=== PATIENT | male | born 1985 | race Caucasian/White ===

== ENCOUNTER 2018-07-07 23:04 | Emergency (ER) | payer SELFPAY ==
[~2018-07-07] VITALS: Ht 175.3 cm; Wt 92.1 kg
--- NOTE | 2018-07-07 23:40 | NUR ---
ED Nurse Note: pt walked in c/o chest pain x 1 hr, sternal area denies radiation, pt reports it feels like pressure feeling, pt states he did drugs, cocaine and other drugs 4 days ago, current everyday smoker. pt AA&ox4, gcs=15, skin warm and dry, resp even and unlabored on RA, -n/v/d, ambulates w/ steady gait, will cont monitor. vss.
[2018-07-07 23:44] VITALS: BP 127/101
[2018-07-07 23:50] LABS: BASOPHILS % (AUTO) 0.7 % (0.0-2.0); EOSINOPHILS % (AUTO) 1.8 % (0.0-3.0); HEMATOCRIT 41.3 % (42.0-52.0); LYMPHOCYTES % (AUTO) 38.7 % (20.0-45.0); MEAN CORPUSCULAR VOLUME 84 FL (80-99); MONOCYTES % (AUTO) 9.3 % (1.0-10.0); NEUTROPHILS % (AUTO) 49.5 % (45.0-75.0); PLATELET COUNT 236 K/UL (150-450); RED CELL DISTRIBUTION WIDTH 12.8 % (11.6-14.8); WHITE BLOOD COUNT 10.3 K/UL (4.8-10.8)
[2018-07-08 00:19] LABS: ALANINE AMINOTRANSFERASE 19 U/L (12-78); ALBUMIN 3.4 G/DL (3.4-5.0); ALBUMIN/GLOBULIN RATIO 0.9 (1.0-2.7); ALKALINE PHOSPHATASE 84 U/L (46-116); ANION GAP 6 mmol/L (5-15); ASPARTATE AMINO TRANSFERASE 9 U/L (15-37); BILIRUBIN,TOTAL 0.2 MG/DL (0.2-1.0); CALCIUM 9.2 MG/DL (8.5-10.1); CARBON DIOXIDE 33 MMOL/L (21-32); CHLORIDE 104 MMOL/L (98-107); CKMB 1.1 NG/ML (0.0-3.6); CREATINE KINASE 135 U/L (26-308); CREATININE 1.3 MG/DL (0.55-1.30); POTASSIUM 3.9 MMOL/L (3.5-5.1); SODIUM 143 MMOL/L (136-145)
[2018-07-08 00:42] LABS: BLOOD UREA NITROGEN 11 mg/dL (7-18)
--- NOTE | 2018-07-08 00:57 | NUR ---
ED Nurse Note: pt cleared to be d/c per ERMD, pt discharge and aftercare instruction provided w/ clinic referral, pt advised to follow up with pcp/clinic or return to ed if sx worsen or new sx develop, pt iv d/c and ID band removed, pt vss, ambulatory w/steady gait, left w/ all belongings, verbalized understanding and agrees with plan.
[2018-07-08 00:58] VITALS: BP 126/76
--- NOTE | 2018-07-08 01:00 | Diagnostic Imaging Report ---
EXAM: XR Chest, 1 View CLINICAL HISTORY: CP TECHNIQUE: Frontal view of the chest. COMPARISON: No relevant prior studies available. FINDINGS: Lungs: Unremarkable. No consolidation. Pleural space: Unremarkable. No pneumothorax. Heart: Unremarkable. No cardiomegaly. Mediastinum: Unremarkable. Bones/joints: Unremarkable. IMPRESSION: No radiographic evidence of acute cardiopulmonary disease.
--- NOTE | 2018-07-08 02:35 | Emergency Room Report ---
History of Present Illness General Chief Complaint: Chest Pain Source: Patient Present Illness HPI 32-year-old male presents ED for evaluation. Complaining of chest pain; states his heart is racing. Started one hour ago. Midsternal, dull, 10 out of 10, nonradiating. Denies shortness of breath. Denies history of hypertension. Admits to drug use 4 days ago. States he is currently in a rehabilitation facility. States he's been using fentanyl and cocaine and opiates. No other aggravating relieving factors. Denies any other associated symptoms Allergies: Coded Allergies: No Known Allergies (Unverified , 07/07/18) Patient History Past Surgical History: other - gastric bypass Pertinent Family History: none Social History: Reports: drug use; Denies: smoking, alcohol use Reviewed Nursing Documentation: PMH: Agreed; PSxH: Agreed Nursing Documentation-PMH Hx Gastrointestinal Problems: Yes - Gastric bypass sugery Review of Systems All Other Systems: negative except mentioned in HPI Physical Exam Vital Signs Date Time Temp Pulse Resp B/P (MAP) Pulse Ox O2 Delivery O2 Flow Rate FiO2 07/07/18 23:09 98.4 75 20 130/81 96 Room Air Sp02 EP Interpretation: reviewed, normal General Appearance: no apparent distress, alert, GCS 15, non-toxic Head: normocephalic, atraumatic Eyes: bilateral eye normal inspection, bilateral eye PERRL ENT: hearing grossly normal, normal pharynx, no angioedema, normal voice Neck: full range of motion, supple/symm/no masses Respiratory: chest non-tender, lungs clear, normal breath sounds, speaking full sentences Cardiovascular #1: regular rate, rhythm, no edema Cardiovascular #2: 2+ carotid (R), 2+ carotid (L), 2+ radial (R), 2+ radial (L) , 2+ dorsalis pedis (R), 2+ dorsalis pedis (L) Gastrointestinal: normal bowel sounds, non tender, soft, non-distended, no guarding, no rebound Rectal: deferred Genitourinary: normal inspection, no CVA tenderness Musculoskeletal: back normal, gait/station normal, normal range of motion, non- tender Neurologic: alert, oriented x3, responsive, motor strength/tone normal, sensory intact, speech normal Psychiatric: judgement/insight normal, memory normal, mood/affect normal, no suicidal/homicidal ideation Reflexes: 3+ bicep (R), 3+ bicep (L), 3+ tricep (R), 3+ tricep (L), 3+ knee (R) , 3+ knee (L) Skin: normal color, no rash, warm/dry, well hydrated Lymphatic: no adenopathy Medical Decision Making Diagnostic Impression: Primary Impression: Chest pain Qualified Codes: R07.9 - Chest pain, unspecified Additional Impression: Substance abuse ER Course Hospital Course 32-year-old M presents ED complaining of chest pain. h/o substance abuse Differential diagnoses include: Rib fracture, AZ/unstable angina, contusion, muscle strain Clinical course Patient placed on stretcher. After initial history and physical I ordered labs , EKG, chest x-ray. labs reviewed- all electrolytes normal, troponins negative, no leukocytosis, hemoglobin/hematocrit stable, UTox + BZs EKG - NSR, no acute ischemic changes interpreted by me Chest x-ray-no cardiomegaly, no rib fracture, no pneumothorax, no acute process Discussed findings with patient. Chest pain resolved during ED course. Patient has no cardiac risk factors. There is a history of substance abuse but tox screen negative for cocaine. Possibly anxiety. Patient can be safely discharged to home. We'll provide outpatient referrals I. I feel this is a highly complex case requiring extensive working including EKG/Rhythm strip, Xray/CT/US, Blood/urine lab work, repeat exams while in ED, and administration of strong opiates/narcotics for pain control, admission to hospital or close patient follow up. Diagnosis - chest pain, substance abuse Stable and discharged to home. Instructed to followup with PMD. Return to ED if symptoms recur or worsen Labs Test 07/07/18 23:30 White Blood Count 10.3 K/UL (4.8-10.8) Red Blood Count 4.90 M/UL (4.70-6.10) Hemoglobin 14.0 G/DL (14.2-18.0) Hematocrit 41.3 % (42.0-52.0) Mean Corpuscular Volume 84 FL (80-99) Mean Corpuscular Hemoglobin 28.5 PG (27.0-31.0) Mean Corpuscular Hemoglobin Concent 33.8 G/DL (32.0-36.0) Red Cell Distribution Width 12.8 % (11.6-14.8) Platelet Count 236 K/UL (150-450) Mean Platelet Volume 6.1 FL (6.5-10.1) Neutrophils (%) (Auto) 49.5 % (45.0-75.0) Lymphocytes (%) (Auto) 38.7 % (20.0-45.0) Monocytes (%) (Auto) 9.3 % (1.0-10.0) Eosinophils (%) (Auto) 1.8 % (0.0-3.0) Basophils (%) (Auto) 0.7 % (0.0-2.0) Sodium Level 143 MMOL/L (136-145) Potassium Level 3.9 MMOL/L (3.5-5.1) Chloride Level 104 MMOL/L (98-107) Carbon Dioxide Level 33 MMOL/L (21-32) Anion Gap 6 mmol/L (5-15) Blood Urea Nitrogen 11 mg/dL (7-18) Creatinine 1.3 MG/DL (0.55-1.30) Estimat Glomerular Filtration Rate > 60 mL/min (>60) Glucose Level 98 MG/DL (74-106) Calcium Level 9.2 MG/DL (8.5-10.1) Total Bilirubin 0.2 MG/DL (0.2-1.0) Aspartate Amino Transf (AST/SGOT) 9 U/L (15-37) Alanine Aminotransferase (ALT/SGPT) 19 U/L (12-78) Alkaline Phosphatase 84 U/L (46-116) Total Creatine Kinase 135 U/L (26-308) Creatine Kinase MB 1.1 NG/ML (0.0-3.6) Creatine Kinase MB Relative Index 0.8 Troponin I 0.002 ng/mL (0.000-0.056) Pro-B-Type Natriuretic Peptide 12 pg/mL (0-125) Total Protein 7.4 G/DL (6.4-8.2) Albumin 3.4 G/DL (3.4-5.0) Globulin 4.0 g/dL Albumin/Globulin Ratio 0.9 (1.0-2.7) Urine Opiates Screen Negative (NEGATIVE) Urine Barbiturates Screen Negative (NEGATIVE) Phencyclidine (PCP) Screen Negative (NEGATIVE) Urine Amphetamines Screen Negative (NEGATIVE) Urine Benzodiazepines Screen Positive (NEGATIVE) Urine Cocaine Screen Negative (NEGATIVE) Urine Marijuana (THC) Screen Negative (NEGATIVE) EKG Diagnostic Results Rate: normal Rhythm: NSR ST Segments: no acute changes ASA given to the pt in ED: No Rhythm Strip Diag. Results EP Interpretation: yes Rhythm: NSR, no PVC's, no ectopy Chest X-Ray Diagnostic Results Chest X-Ray Diagnostic Results : Chest X-Ray Ordered: Yes # of Views/Limited/Complete: 1 View Indication: Chest Pain EP Interpretation: Yes Interpretation: no consolidation, no effusion, no pneumothorax, no acute cardiopulmonary disease Impression: No acute disease Electronically Signed by: Electronically signed by Tigre Swann MD Last Vital Signs Date Time Temp Pulse Resp B/P (MAP) Pulse Ox O2 Delivery O2 Flow Rate FiO2 07/08/18 00:58 98.2 74 18 126/76 100 Room Air Status: improved Disposition: HOME, SELF-CARE Condition: Stable Referrals: [facility] Patient Instructions: Nonspecific Chest Pain, Substance Abuse Testing Tigre Swann MD Jul 08, 2018 02:35
--- NOTE | 2018-07-10 18:26 | Cardiology Report ---
APPROVED REPORT EKG Measurement Heart [id number] Normal sinus rhythm Normal ECG
== END 2018-07-08 00:59 | disposition home or self-care (01) ==
LOC: EMR 23:39
DX: R07.9 Chest pain, unspecified (principal); F19.10 Other psychoactive substance abuse, uncomplicated; Z98.84 Bariatric surgery status
CPT/HCPCS: 36415; 71045; 80053; 80307; 82550; 82553; 83880; 84484; 85025; 93005; 96360; 99284

== ENCOUNTER 2018-07-26 12:33 | Emergency (ER) | payer SELFPAY ==
[~2018-07-26] VITALS: Ht 175.3 cm; Wt 81.6 kg
[2018-07-26] MEDS ORDERED: Mylanta II UD 30ml ORAL ONE (13:15)
[2018-07-26] MEDS ORDERED: Lidocaine 2% Visc 15ml soln ORAL ONE (13:15)
--- NOTE | 2018-07-26 13:51 | Emergency Room Report ---
History of Present Illness General Chief Complaint: Vomiting Source: Patient Present Illness HPI 32-year-old male presents to the emergency department complaining of intermittent episodes of vomiting with 3/10 in severity burning epigastric pain as well as cough that he states is worse at nighttime. Patient reports that he has a history of gastric sleeve surgery which was performed 4 years ago. Patient reports that he has been noticing increase in acid reflux. Patient states that he is currently in a rehabilitation facility after which he detox from multiple street drugs he states that he is requiring to medications for his symptoms. Patient denies all symptoms at this time he denies fevers, chills , constipation or diarrhea. Patient denies recent travel or ill contacts. Patient states that he was not detoxing from opiates. Patient states that when he eats steak or chicken aggravates his symptoms no relieving factors at this time. Allergies: Coded Allergies: No Known Allergies (Unverified , 07/07/18) Patient History Past Medical History: see triage record, GERD Past Surgical History: none Immunizations: UTD Reviewed Nursing Documentation: PMH: Agreed Nursing Documentation-PMH Past Medical History: No Stated History Hx Gastrointestinal Problems: Yes - Gastric bypass sugery Review of Systems All Other Systems: negative except mentioned in HPI Physical Exam Vital Signs Date Time Temp Pulse Resp B/P (MAP) Pulse Ox O2 Delivery O2 Flow Rate FiO2 07/26/18 12:47 98.4 84 16 99 Room Air Sp02 EP Interpretation: reviewed, normal General Appearance: no apparent distress, alert, GCS 15, non-toxic Head: normocephalic, atraumatic Eyes: bilateral eye normal inspection, bilateral eye PERRL ENT: hearing grossly normal, normal voice Neck: full range of motion Respiratory: lungs clear, normal breath sounds, no accessory muscle use, no wheezing, speaking full sentences Cardiovascular #1: regular rate, rhythm Gastrointestinal: normal bowel sounds, non tender, soft, non-distended, no guarding Musculoskeletal: back normal, gait/station normal, normal range of motion, non- tender Neurologic: alert, oriented x3, responsive, motor strength/tone normal, sensory intact, speech normal, grossly normal Psychiatric: judgement/insight normal Skin: normal color, no rash, warm/dry, well hydrated Medical Decision Making PA Attestation Dr. Pierre is my supervising Physician whom patient management has been discussed with. Diagnostic Impression: Primary Impression: Acid reflux Qualified Codes: K21.9 - Gastro-esophageal reflux disease without esophagitis Additional Impression: Cough ER Course 32-year-old male presents to the emergency department complaining of intermittent episodes of vomiting with 3/10 in severity burning epigastric pain as well as cough that he states is worse at nighttime. Patient reports that he has a history of gastric sleeve surgery which was performed 4 years ago. Patient reports that he has been noticing increase in acid reflux. Patient states that he is currently in a rehabilitation facility after which he detox from multiple street drugs he states that he is requiring to medications for his symptoms. Patient denies all symptoms at this time he denies fevers, chills , constipation or diarrhea. Patient denies recent travel or ill contacts. Patient states that he was not detoxing from opiates. Patient states that when he eats steak or chicken aggravates his symptoms no relieving factors at this time.. Ddx considered but are not limited to GE, colitis, acute appy, SBO, Cyclical Vomiting secondary to THC, opiate w/d, GERD, PNA just to name a few. Vital signs: pt. is afebrile, H&PE are most consistent with GERD secondary to gastric sleeve and pt. states he sleeps without a pillow, no evidence to suggest acute abdomen on physical exam. Lung exam is WNL ORDERS: -None required at this time, the dx is clinical. ED INTERVENTIONS: -Zofran, GI cocktail, Patient tolerated oral fluid challenge without complications. I discussed with this patient that he needs to stop eating proximally 2-3 hours prior to bedtime, elevate the head of the bed between 20-30 and start using pillows. -I do not identify an emergent condition at this time. With current presentation , pt. is stable for close outpatient follow up and conservative treatment. D/ w pt. to return promptly to ED with worsening or new symptoms.- Pt. verbalizes' understanding and agreement with proposed treatment plan.proposed treatment plan. DISCHARGE: At this time pt. is stable for d/c to home. Will provide printed patient care instructions, and any necessary prescriptions. Care plan and follow up instructions have been discussed with the patient prior to discharge. Last Vital Signs Date Time Temp Pulse Resp B/P (MAP) Pulse Ox O2 Delivery O2 Flow Rate FiO2 07/26/18 12:57 84 16 Room Air 07/26/18 12:47 98.4 99 Status: improved Disposition: HOME, SELF-CARE Condition: Stable Scripts B Complex With Vitamin C (B-COMPLEX WITH VITAMIN C) 1 Each Tablet 1 TAB ORAL DAILY, #30 TAB 0 Refills Prov: Lien Navarrete 07/26/18 Ranitidine Hcl* (ZANTAC*) 150 Mg Tablet 150 MG ORAL TWICE A DAY, #20 TAB Prov: Lien Navarrete 07/26/18 Famotidine/Ca Carb/Mag Hydrox (PEPCID COMPLETE TABLET CHEW) 1 Each Tab.chew 1 EACH PO BID, #20 TAB Prov: Lien Navarrete 07/26/18 Referrals: NOT CHOSEN IPA/MD,REFERRING (PCP) Patient Instructions: Food Choices for Gastroesophageal Reflux Disease, Adult, [id number] Additional Instructions: Take medications as directed. Follow up with a Primary Care Provider in 3-5 days, even if your symptoms have resolved. -- GI SPECIALIST FOR GASTRIC SLEEVE EVAL. Return sooner to ED if new symptoms occur, or current symptoms become worse. - Please note that this Emergency Department Report was dictated using [employer] supervisor technology software, occasionally this can lead to erroneous entry secondary to interpretation by the dictation equipment. Lien Navarrete July 26, 2018 13:51
[2018-07-26] MEDS ORDERED: PEPCID COMPLET1 EACH PO (13:54)
[2018-07-26] MEDS ORDERED: ZANTAC150 MG ORAL (13:54)
[2018-07-26] MEDS ORDERED: B-COMPLEX WITH1 EACH ORAL (13:55)
--- NOTE | 2018-07-26 14:00 | NUR ---
ER DISCHARGE NOTE: Patient is cleared to be discharged per ERMD, pt is aox4, on room air, with stable vital signs. pt was given dc and prescription instructions, pt was able to verbalize understanding, pt is able to ambulate with steady gait. pt took all belongings.
[2018-07-26 14:52] VITALS: BP 112/62
[2018-07-26 14:54] VITALS: BP 112/62
== END 2018-07-26 14:10 | disposition home or self-care (01) ==
LOC: EMR 13:35
DX: K21.9 Gastro-esophageal reflux disease without esophagitis (principal); R05 Cough; Z98.84 Bariatric surgery status
CPT/HCPCS: 99282

== ENCOUNTER 2018-11-06 11:33 | Emergency (ER) | payer SELFPAY ==
[~2018-11-06] VITALS: Ht 175.3 cm; Wt 90.7 kg
[~2018-11-06 11:33] MED LIST: B-COMPLEX WITH1 EACH ORAL; PEPCID COMPLET1 EACH PO; ZANTAC150 MG ORAL
[2018-11-06 11:50] VITALS: BP 131/77
--- NOTE | 2018-11-06 11:51 | NUR ---
ED Nurse Note: pt walked in to ED from rehab due to headache for 2 days. no recent injury. AAO x4. respirations even and non-labored noted. will wait for the further order.
[2018-11-06] MEDS ORDERED: Ketorolac 30mg Inj IV ONE (12:00)
--- NOTE | 2018-11-06 12:02 | Emergency Room Report ---
History of Present Illness General Chief Complaint: Headache Source: Patient Present Illness HPI Patient presents with 3 days of headache. He rates it 9/10 at this time and pounding. Is worse when he stands up. Patient was working out when this started. He was spending an hour on the treadmill and lifting weights. Today the headache was worse and associated with diarrhea liquid stool. He denies any blood in his stool. He feels heartburn at this time. He ate a full breakfast this morning. He is taking Pepcid. No weakness, tingling, numbness, visual changes, family history of aneurysms, documented fever, blood thinners, IV drug use or oncologic problems. According to the physician who is in rehab with the patient he has had 2 syncopal episodes. In addition the physician informs me that the patient had a cardiac event several years ago related to alcohol withdrawal. They had to shock his heart apparently. Patient denies headaches like this before. He states it was not sudden onset. He denies aura or visual changes. No nausea or vomiting. No sore throat, chest pain, palpitations, dysuria, abdominal pain, shortness of breath, joint pain, rashes, depression, anxiety. Status post liposuction Allergies: Coded Allergies: No Known Allergies (Unverified , 07/07/18) Patient History Past Medical History: see triage record Past Surgical History: other - Liposuction Social History: Reports: smoking; Denies: alcohol use - In rehab, prior use, drug use - In rehab prior use Social History Narrative In rehab program Reviewed Nursing Documentation: PMH: Agreed; PSxH: Agreed Nursing Documentation-PMH Past Medical History: No History, Except For Hx Gastrointestinal Problems: Yes - Gastric bypass sugery History Of Psychiatric Problem: Yes - Depression Review of Systems All Other Systems: negative except mentioned in HPI Physical Exam Vital Signs Date Time Temp Pulse Resp B/P (MAP) Pulse Ox O2 Delivery O2 Flow Rate FiO2 11/06/18 11:39 97.5 68 16 131/77 (95) 97 Room Air Sp02 EP Interpretation: reviewed, normal General Appearance: well appearing, no apparent distress, GCS 15 Head: normocephalic Eyes: bilateral eye normal inspection, bilateral eye PERRL, bilateral eye EOMI ENT: moist mucus membranes Neck: full range of motion, supple Respiratory: lungs clear, normal breath sounds Cardiovascular #1: regular rate, rhythm Cardiovascular #2: 2+ radial (L) Gastrointestinal: normal inspection, normal bowel sounds, non tender - Reported heartburn, no mass, non-distended Genitourinary: no CVA tenderness Musculoskeletal: back normal, gait/station normal, normal range of motion Neurologic: alert, oriented x3, mergers and acquisitions associate III-XII nml as tested, motor strength/tone normal, DTRs symmetric, sensory intact, cerebellar normal, normal gait, speech normal Psychiatric: mood/affect normal Skin: no rash Medical Decision Making Diagnostic Impression: Primary Impression: Headache Qualified Codes: G44.89 - Other headache syndrome Additional Impressions: Diarrhea Qualified Codes: R19.7 - Diarrhea, unspecified Dehydration ER Course Patient presents with 3 days of headache and now diarrhea. Differential includes migraine, viral syndrome, dehydration, electrolyte imbalance amongst others. The patient will be evaluated with labs. CT of the head is not indicated based on the neurologic exam and lack of red flag symptoms. Patient will receive IV hydration and also dose of Toradol and Pepcid. EKG sinus rhythm nonspecific ST-T wave changes. Labs significant for mild leukocytosis. Not orthostatic after IV. FRANCISCO and sy improved. Discussed outpatient follow-up. Advised to return if not improved. Also advised to decrease the intensity of the workout temporarily. Patient stable for outpatient observation and treatment. Laboratory Tests Test 11/06/18 11:55 11/06/18 12:15 Urine Color Pale yellow Urine Appearance Clear Urine pH 5 (4.5-8.0) Urine Specific [place] 1.020 (1.005-1.035) Urine Protein Negative (NEGATIVE) Urine Glucose (UA) Negative (NEGATIVE) Urine Ketones Negative (NEGATIVE) Urine Blood Negative (NEGATIVE) Urine Nitrite Negative (NEGATIVE) Urine Bilirubin Negative (NEGATIVE) Urine Urobilinogen Normal MG/DL (0.0-1.0) Urine Leukocyte Esterase Negative (NEGATIVE) Urine Opiates Screen Negative (NEGATIVE) Urine Barbiturates Screen Negative (NEGATIVE) Phencyclidine (PCP) Screen Negative (NEGATIVE) Urine Amphetamines Screen Negative (NEGATIVE) Urine Benzodiazepines Screen Negative (NEGATIVE) Urine Cocaine Screen Negative (NEGATIVE) Urine Marijuana (THC) Screen Negative (NEGATIVE) White Blood Count 12.3 K/UL (4.8-10.8) H Red Blood Count 4.85 M/UL (4.70-6.10) Hemoglobin 13.5 G/DL (14.2-18.0) L Hematocrit 41.7 % (42.0-52.0) L Mean Corpuscular Volume 86 FL (80-99) Mean Corpuscular Hemoglobin 27.9 PG (27.0-31.0) Mean Corpuscular Hemoglobin Concent 32.4 G/DL (32.0-36.0) Red Cell Distribution Width 12.7 % (11.6-14.8) Platelet Count 228 K/UL (150-450) Mean Platelet Volume 5.9 FL (6.5-10.1) L Neutrophils (%) (Auto) 63.1 % (45.0-75.0) Lymphocytes (%) (Auto) 26.7 % (20.0-45.0) Monocytes (%) (Auto) 8.3 % (1.0-10.0) Eosinophils (%) (Auto) 1.3 % (0.0-3.0) Basophils (%) (Auto) 0.7 % (0.0-2.0) Sodium Level 139 MMOL/L (136-145) Potassium Level 4.5 MMOL/L (3.5-5.1) Chloride Level 105 MMOL/L (98-107) Carbon Dioxide Level 29 MMOL/L (21-32) Anion Gap 5 mmol/L (5-15) Blood Urea Nitrogen 10 mg/dL (7-18) Creatinine 1.1 MG/DL (0.55-1.30) Estimate Glomerular Filtration Rate > 60 mL/min (>60) Glucose Level 91 MG/DL (74-106) Calcium Level 8.8 MG/DL (8.5-10.1) Total Bilirubin 0.3 MG/DL (0.2-1.0) Aspartate Amino Transferase (AST) 21 U/L (15-37) Alanine Aminotransferase (ALT) 22 U/L (12-78) Alkaline Phosphatase 84 U/L (46-116) Troponin I 0.009 ng/mL (0.000-0.056) Total Protein 7.1 G/DL (6.4-8.2) Albumin 3.3 G/DL (3.4-5.0) L Globulin 3.8 g/dL Albumin/Globulin Ratio 0.9 (1.0-2.7) L Lipase 81 U/L (73-393) EKG Diagnostic Results Rate: normal Rhythm: NSR ST Segments: no acute changes Rhythm Strip Diag. Results EP Interpretation: yes Rhythm: NSR, no PVC's, no ectopy, other - from EKG Last Vital Signs Date Time Temp Pulse Resp B/P (MAP) Pulse Ox O2 Delivery O2 Flow Rate FiO2 11/06/18 14:08 97.8 67 18 106/62 97 Room Air Status: improved Disposition: HOME, SELF-CARE - rehab Condition: Improved Scripts Acetaminophen (Tylenol) 325 Mg Tablet 650 MG ORAL Q6H PRN for Prn Pain/Headache/Temp > 101, #20 TAB 0 Refills Prov: Glenn Gutierrez MD 11/06/18 Glenn Gutierrez MD Nov 06, 2018 12:02
[2018-11-06 12:42] LABS: BASOPHILS % (AUTO) 0.7 % (0.0-2.0); EOSINOPHILS % (AUTO) 1.3 % (0.0-3.0); HEMATOCRIT 41.7 % (42.0-52.0); HEMOGLOBIN 13.5 G/DL (14.2-18.0); LYMPHOCYTES % (AUTO) 26.7 % (20.0-45.0); MEAN CORPUSCULAR VOLUME 86 FL (80-99); MONOCYTES % (AUTO) 8.3 % (1.0-10.0); NEUTROPHILS % (AUTO) 63.1 % (45.0-75.0); PLATELET COUNT 228 K/UL (150-450); RED BLOOD COUNT 4.85 M/UL (4.70-6.10); RED CELL DISTRIBUTION WIDTH 12.7 % (11.6-14.8); WHITE BLOOD COUNT 12.3 K/UL (4.8-10.8)
[2018-11-06 12:46] LABS: APPEARANCE,URINE CLEAR; BILIRUBIN, URINE NEGATIVE (NEGATIVE); COLOR,URINE PALE YELLOW; GLUCOSE, URINE (UA) NEGATIVE (NEGATIVE); KETONES,URINE NEGATIVE (NEGATIVE); LEUKOCYTE ESTERASE ,URINE NEGATIVE (NEGATIVE); NITRITE,URINE NEGATIVE (NEGATIVE); PH,URINE 5 (4.5-8.0); PROTEIN,URINE NEGATIVE (NEGATIVE); UROBILINOGEN,URINE NORMAL MG/DL (0.0-1.0)
[2018-11-06 12:58] LABS: ANION GAP 5 mmol/L (5-15); BLOOD UREA NITROGEN 10 mg/dL (7-18); CALCIUM 8.8 MG/DL (8.5-10.1); CARBON DIOXIDE 29 MMOL/L (21-32); CHLORIDE 105 MMOL/L (98-107); CREATININE 1.1 MG/DL (0.55-1.30); POTASSIUM 4.5 MMOL/L (3.5-5.1); SODIUM 139 MMOL/L (136-145)
[2018-11-06 13:02] LABS: ALANINE AMINOTRANSFERASE 22 U/L (12-78); ALBUMIN 3.3 G/DL (3.4-5.0); ALBUMIN/GLOBULIN RATIO 0.9 (1.0-2.7); ALKALINE PHOSPHATASE 84 U/L (46-116); ASPARTATE AMINO TRANSFERASE 21 U/L (15-37); BILIRUBIN,TOTAL 0.3 MG/DL (0.2-1.0)
[2018-11-06 13:40] VITALS: BP_SYST 105; BP_SYST 98; BP_DIAS 63; BP_DIAS 64; BP_DIAS 68
[2018-11-06] MEDS ORDERED: TYLENOL325 MG ORAL (13:53)
[2018-11-06 14:08] VITALS: BP 106/62
--- NOTE | 2018-11-06 14:09 | NUR ---
ED Nurse Note: Patient is being discharged from medical care. IV from LAC 20g removed. Site remained intact wtihout redness or swelling. D/C instructon and prescription given and verbalized understanding of it. Patient ambulated out with steady gait with all his belongings, accompanied by caregiver from rehab.
== END 2018-11-06 14:09 | disposition home or self-care (01) ==
LOC: EMR 13:52
DX: G44.89 Other headache syndrome (principal); R19.7 Diarrhea, unspecified; E86.0 Dehydration; F17.200 Nicotine dependence, unspecified, uncomplicated; Z98.84 Bariatric surgery status; F32.9 Major depressive disorder, single episode, unspecified
CPT/HCPCS: 36415; 80053; 80307; 81003; 83690; 84484; 85025; 93005; 96361; 96374; 96375; 99284; J1885; S0028